=== PATIENT | male | born 1930 | race Caucasian/White ===

== ENCOUNTER 2016-08-09 11:25 | Emergency (ER) | payer MEDICARE, BC ==
[2016-08-09 10:07] LABS: URINE SOURCE CLEAN CATCH
[2016-08-09 10:17] LABS: URINE APPEARANCE CLOUDY; URINE BILIRUBIN NEG (NEG); URINE BLOOD 4+ (NEG); URINE COLOR AMBER; URINE GLUCOSE NORM (NORM); URINE KETONE NEG (NEG); URINE LEUKOCYTE ESTERASE 3+ (NEG); URINE NITRATE NEG (NEG); URINE PROTEIN 2+ (NEG); URINE SPECIFIC GRAVITY 1.015 (1.003-1.035); URINE UROBILINOGEN NORM (NORM)
[2016-08-09 10:54] LABS: CULTURE INDICATED? YES; URBCS1 AUWI 50-100 /[HPF] (0-2); URINE BACTERIA AUWI 2+ (NEGATIVE); UWBCS1 AUWI INNUM (0-5)
[2016-08-09 10:55] LABS: URINE SQUAMOUS EPITHELIAL CELL OCCAS /[HPF]
[~2016-08-09 11:25] MED LIST: AMLODIPINE BESYL5 MG PO; ASPIRIN EC81 M1 PO; COREG3.125 MG PO; CRESTOR PO; FLAXSEED PO; FLONASE 0.05% N16 G1; IMDUR-ER30 M1 PO; LIPITOR40 MG PO; LISINOPRIL PO; METOPROLOL SUCC25 MG PO; NITROGLYCERIN0.4 MG SL; OCUVITE TABLET1 TAB PO; PLAVIX PO; TRICOR PO
[2017-02-14] MEDS ORDERED: PATIENT'S PHARMACY (14:17)
[2017-02-14] MEDS ORDERED: NAMENDA10 MG PO (14:18)
[2017-02-14] MEDS ORDERED: NORVASC PO (14:18)
[2017-02-14] MEDS ORDERED: LISINOPRIL PO (14:18)
[2017-02-14] MEDS ORDERED: DONEPEZIL HCL10 MG PO (14:18)
[2017-02-14] MEDS ORDERED: ATROVENT 0.03%30 ML (14:18)
[2017-02-15] MEDS ORDERED: NORVASC2.5 MG PO (18:27)
[2017-02-15] MEDS ORDERED: AMBIEN PO (18:29)
[2017-02-15] MEDS ORDERED: LEVAQUIN PO (18:30)
[2017-02-15] MEDS ORDERED: ASPIRIN81 MG PO (18:30)
[2017-02-15] MEDS ORDERED: LIPITOR40 MG PO (18:31)
== END 2016-08-09 11:51 | disposition home or self-care (01) ==
LOC: CED 11:25
PROVIDERS: Physician Assistant Medical
DX: N30.00 Acute cystitis without hematuria (principal); I10 Essential (primary) hypertension; Z79.82 Long term (current) use of aspirin; Z79.899 Other long term (current) drug therapy
CPT/HCPCS: 81003; 87086; 87088; 87186; 99282